=== PATIENT | female | born 1950 | race Caucasian/White ===

== ENCOUNTER 2021-07-13 11:07 | Outpatient (CLI) | payer OTHER, BC | END 2021-07-13 21:00 | disposition home or self-care (01) | LOC: SMI 11:07 | PROVIDERS: ATTEND Orthopaedic Surgery | DX: M48.07 Spinal stenosis, lumbosacral region (principal); M48.56XA Collapsed vertebra, not elsewhere classified, lumbar region, initial encounter for fracture; M48.55XA Collapsed vertebra, not elsewhere classified, thoracolumbar region, initial encounter for fracture; M89.38 Hypertrophy of bone, other site; M46.05 Spinal enthesopathy, thoracolumbar region; M54.59 Other low back pain | CPT/HCPCS: 72148 ==

== ENCOUNTER 2021-12-30 11:52 | Outpatient (CLI) | payer OTHER, BC | END 2021-12-30 20:02 | disposition home or self-care (01) | LOC: SMI 11:52 | DX: M47.26 Other spondylosis with radiculopathy, lumbar region (principal); M47.817 Spondylosis without myelopathy or radiculopathy, lumbosacral region; M48.07 Spinal stenosis, lumbosacral region; M51.16 Intervertebral disc disorders with radiculopathy, lumbar region; M89.38 Hypertrophy of bone, other site; N28.1 Cyst of kidney, acquired | CPT/HCPCS: 72148 ==